=== PATIENT | female | born 1985 | race Caucasian/White ===

== ENCOUNTER 2017-02-20 21:44 | Emergency (ER) | payer OTHER ==
[~2017-02-20] VITALS: Ht 165.1 cm; Wt 55.5 kg
[2017-02-20] MEDS ORDERED: AMOXICILLIN875 MG PO (23:11)
[2017-02-20] MEDS ORDERED: AUGMENTIN875 MG PO (23:13)
[2017-02-21 00:45] VITALS: BP 112/71
== END 2017-02-21 00:45 | disposition home or self-care (01) ==
LOC: EME 21:44
PROC: 3E0234Z Introduction of Serum, Toxoid and Vaccine into Muscle, Percutaneous Approach (ICD-10-PCS; principal; 2017-02-20)
DX: S61.432A Puncture wound without foreign body of left hand, initial encounter (principal); L03.114 Cellulitis of left upper limb; I89.1 Lymphangitis; W55.01XA Bitten by cat, initial encounter; Z23 Encounter for immunization; F17.200 Nicotine dependence, unspecified, uncomplicated; Z88.6 Allergy status to analgesic agent
CPT/HCPCS: 87070; 87075; 87205; 99281; 99284; J0295; J7050